=== PATIENT | male | born 1980 | race Caucasian/White ===

== ENCOUNTER 2022-06-11 16:29 | Emergency (ER) | payer OTHER, MEDICAID ==
[~2022-06-11] VITALS: Ht 182.9 cm; Wt 109.1 kg
[2022-06-11] MEDS ORDERED: SODIUM CHLORIDE 0.9% 1,000 ML IV ONE (17:45)
[2022-06-11] MEDS ORDERED: SODIUM CHLORIDE 0.9% 500 ML IVB ONE (17:45)
[2022-06-11] MEDS ORDERED: IOHEXOL 300 MG/ML 100ML BOTTLE IJ ONE (18:01)
[2022-06-11 20:05] LABS: Basophils # (auto) 0 10 ^3/uL (0-0.2); Basophils % (auto) 0.5 % (0.0-2.0); Eosinophils # (auto) 0.2 10 ^3/uL (0-0.8); Eosinophils % (auto) 1.8 % (0.0-7.0); Hematocrit 40.3 % (41.0-53.0); Hemoglobin 13.4 g/dL (13.5-17.5); Lymphocytes # (auto) 1.5 10 ^3/uL (0.4-5.4); Lymphocytes % (auto) 17.1 % (10.0-50.0); Mean Corpuscular Hemoglobin 27.4 pg (28.0-32.0); Mean Corpuscular Hgb Conc. 33.4 g/dL (32.0-36.0); Mean Corpuscular Volume 82.2 fL (80.0-100.0); Monocytes # (auto) 0.6 10 ^3/uL (0-1.3); Monocytes % (auto) 6.7 % (0.0-12.0); Neutrophils # (auto) 6.6 10 ^3/uL (1.6-8.6); Neutrophils % (auto) 73.9 % (37.0-80.0); Nucleated Red Blood Cells % 0.1 %; Red Cell Distribution Width 14.4 % (11.8-14.3)
[2022-06-11 20:14] LABS: Albumin 3.4 g/dL (3.4-5.0); Calcium 8.7 mg/dL (8.5-10.1); Magnesium 2.1 mg/dL (1.6-2.6); Potassium 3.8 mmol/L (3.5-5.1)
[2022-06-11] MEDS ORDERED: PROMETHAZINE HCL 25 MG/ML 1ML IV ONE (20:15)
[2022-06-11 20:17] LABS: BUN/Creatinine Ratio 15.9
[2022-06-11 20:19] LABS: INR 0.94 (0.9-1.15); Partial Thromboplastin Time 28.8 sec (24.6-33.4)
[2022-06-11 20:20] LABS: Bilirubin, Total 0.2 mg/dL (0.2-1.0)
[2022-06-11] MEDS: HYDROmorphone HCL 2 MG/ML VL/or syr IV ONE (21:30)
[2022-06-11 22:47] LABS: Urine Bacteria NONE SEEN /hpf (None Seen); Urine Blood Negative /uL (Negative); Urine Hyaline Cast FEW /lpf (0 - 2); Urine Specific Gravity 1.047 (1.001-1.035); Urine WBC <1 /hpf (0 - 3)
[2022-06-11 23:09] LABS: Alcohol, Urine < 3.0 mg/dL (0-10); Amphetamine Screen, Urine POSITIVE (NEGATIVE); Barbiturate Scree,Urine NEGATIVE (NEGATIVE); Benzodiazephine Screen, Urine NEGATIVE (NEGATIVE); Cannabinoid Screen, Urine NEGATIVE (NEGATIVE); Cocaine Screen, Urine NEGATIVE (NEGATIVE); Phencyclidine Screen, Urine NEGATIVE (NEGATIVE)
[2022-06-11 23:16] LABS: Opiate Scree,Urine POSITIVE (NEGATIVE)
[2022-06-12] MEDS: HYDROmorphone HCL 2 MG/ML VL/or syr IV ONE (00:12)
[2022-06-12 01:12] VITALS: BP 131/78
== END 2022-06-12 02:45 | disposition left against medical advice (07) ==
LOC: EDBD 16:29 → ER 16:29
DX: S20.00XA Contusion of breast, unspecified breast, initial encounter (principal); S20.229A Contusion of unspecified back wall of thorax, initial encounter; S89.80XA Other specified injuries of unspecified lower leg, initial encounter; S00.33XA Contusion of nose, initial encounter; M47.894 Other spondylosis, thoracic region; I10 Essential (primary) hypertension; F17.210 Nicotine dependence, cigarettes, uncomplicated; F10.90 Alcohol use, unspecified, uncomplicated; F15.90 Other stimulant use, unspecified, uncomplicated; Z98.890 Other specified postprocedural states; V49.59XA Passenger injured in collision with other motor vehicles in traffic accident, initial encounter; Y93.89 Activity, other specified; Y92.410 Unspecified street and highway as the place of occurrence of the external cause; Y99.8 Other external cause status
CPT/HCPCS: 36415; 70450; 71260; 72125; 72128; 72131; 73590; 73700; 74177; 80053; 80307; 80320; 81001; 83735; 85025; 85610; 85730; 96361; 96374; 96375; 99285; J1170; J2550; J7030; J7040; Q9967